=== PATIENT | female | born 1990 | race Caucasian/White ===

== ENCOUNTER 2016-12-18 | Emergency (ER) | payer OTHER ==
--- NOTE | 2016-12-18 11:38 | ED ---
Skin/Abscess/FB HPI - General Chief complaint: Skin/Abscess/Foreign Body Stated complaint: mrsa Time Seen by Provider: 12/18/16 10:57 Source: patient Mode of arrival: ambulatory Limitations: no limitations - History of Present Illness Initial comments: Patient is a 26-year-old female past medical history of MRSA presenting with right axillary abscess 4 day. Patient states she's been trying warm compresses but has been to the point it hurts just due to the warm compresses. Patient has not tried Tylenol Motrin for the pain. Patient states abscess is not draining. Patient states tender to the touch. Patient had a prior vaginal MRSA abscess several years ago. Patient lives with someone that does have MRSA as well. Patient has an ALLERGY to Bactrim. Patient denies fever, chills, chest pain, shortness breath, nausea, vomiting, diarrhea. - Related Data Home Medications Medication Instructions Recorded Confirmed ALPRAZolam [Xanax] 0.5 mg PO DAILY PRN 05/28/16 12/18/16 Ibuprofen [Motrin] 200 mg PO BID PRN 12/18/16 12/18/16 Previous Rx's Medication Instructions Recorded Clindamycin [Cleocin] 450 mg PO TID #90 capsule 12/18/16 Allergies Allergy/AdvReac Type Severity Reaction Status Date / Time tea tree Allergy Severe Rash/Hives Verified 12/18/16 11:02 sulfamethoxazole Allergy Mild Rash/Hives Verified 12/18/16 11:02 [From Bactrim] trimethoprim [From Bactrim] Allergy Mild Rash/Hives Verified 12/18/16 11:02 Review of Systems ROS Statement: Those systems with pertinent positive or pertinent negative responses have been documented in the HPI. Constitutional: No fever and no chills. HENT: No congestion, no rhinorrhea and no sore throat. Eyes: No discharge and no redness. Respiratory: No cough and no shortness of breath. Cardiovascular: No chest pain and no palpitations. Gastrointestinal: No nausea, no vomiting, no abdominal pain and no diarrhea. Genitourinary: No dysuria and no hematuria. Musculoskeletal: No back pain and no arthralgias. Skin: Positive for abscess. No pallor and no rash. Neurological: No dizziness and No headaches. ROS Other: All systems not noted in ROS Statement are negative. Past Medical History Past Medical History: No Reported History History of Any Multi-Drug Resistant Organisms: MRSA Date of last positivie culture/infection: 05/28/16 MDRO Source:: GROIN Past Surgical History: No Surgical Hx Reported Past Psychological History: Anxiety Smoking Status: Never smoker Past Alcohol Use History: None Reported Past Drug Use History: None Reported General Exam - General Exam Comments Initial Comments: Constitutional: Patient appears well-developed and well-nourished. Mild distress. Head: Normocephalic and atraumatic. Eyes: Conjunctivae and EOM are normal. Right eye exhibits no discharge. Left eye exhibits no discharge. No scleral icterus. Neck: Normal range of motion. Neck supple. Cardiovascular: Normal rate and regular rhythm. No murmur heard. Pulmonary/Chest: Effort normal and breath sounds normal. No respiratory distress. No wheezes. Abdominal: Soft. No distension. There is no tenderness. There is no rebound and no guarding. Musculoskeletal: Normal range of motion. No edema or tenderness. Neurological: Patient alert and oriented to person, place, and time. Skin: Right axillary abscess approximately 3 cm with surrounding erythema and tenderness was really tender. No obvious drainage. Skin is warm and dry. Not diaphoretic. Nursing notes and vitals reviewed. Limitations: no limitations Course Vital Signs 12/18/16 10:13 Temperature 98.2 F Pulse Rate 96 Respiratory 16 Rate Blood Pressure 126/78 O2 Sat by Pulse 99 Oximetry - Reevaluation(s) Reevaluation #1: 12/18/16 11:40 Bedside ultrasound confirms a small subcutaneous abscess approximately 1 cm on ultrasound. Patient verbally consented for I&D. Procedures - Incision & Drainage Consent Obtained: verbal consent Time Out Performed?: Yes Indication: Abscess Site: upper extremity Size (cm): 3 Anesthetic Used: lidocaine 1% Amount (mLs): 3 I&D Cleaning Method: Betadine Sterile Field Used?: Yes Scalpel Used: #11 Irrigation Performed?: Yes (Irrigated with 3 rounds of 10 mL normal saline) I&D Drainage Obtained: Pus, Blood Culture Obtained?: No Patient Tolerated Procedure: well Medical Decision Making - Medical Decision Making Patient is a 26-year-old female presenting with 3 cm right axillary abscess which was drained under sterile conditions with I&D. Small amount of purulent drainage taken out. Patient with history of MRSA therefore was treated with clindamycin given her Bactrim ALLERGY. Prior to discharge, patient was resting comfortably in bed. Course of stay improved. Denies pain. Discussed physical exam and diagnostic tests with patient. Questions answered and patient is agreeable to discharge with close follow up with Primary Care Physician. Instructed to return to Emergency Department if symptoms worsen. Disposition Clinical Impression: Axillary abscess Disposition: HOME SELF-CARE Condition: Good Instructions: Abscess Incision and Drainage (ED) Prescriptions: Clindamycin [Cleocin] 450 mg PO TID #90 capsule Referrals: Georges Frazier MD [Primary Care Provider] - 1-2 days
== END 2016-12-18 11:47 | disposition home or self-care (01) ==
CPT/HCPCS: 10060; 99282

== ENCOUNTER 2017-02-25 17:34 | Emergency (ER) | payer OTHER ==
[2017-02-25 17:53] VITALS: PULSE 100; RESP 18
--- NOTE | 2017-02-25 18:31 | ED ---
General Adult HPI - General Chief complaint: Skin/Abscess/Foreign Body Stated complaint: Abcess under arm Time Seen by Provider: 02/25/17 17:57 Source: patient, RN notes reviewed Mode of arrival: ambulatory Limitations: no limitations - History of Present Illness Initial comments: This is a 26-year-old female who presents with an abscess to the right armpit 5 days. Patient states this has happened to her before and she has a history of MRSA. Patient states the area is painful and the patient denies any fever/ chills. Patient denies any chance of being . Patient denies any recent fever, chills, shortness breath, chest pain, abdominal pain, nausea/ vomiting/diarrhea, back pain, numbness, tingling, hematuria, headache, or visual changes, or any other complaints. - Related Data Home Medications Medication Instructions Recorded Confirmed ALPRAZolam [Xanax] 0.5 mg PO DAILY PRN 05/28/16 12/18/16 Ibuprofen [Motrin] 200 mg PO BID PRN 12/18/16 12/18/16 Previous Rx's Medication Instructions Recorded Clindamycin [Cleocin] 450 mg PO TID #90 capsule 12/18/16 Clindamycin [Cleocin] 150 mg PO Q6H 7 Days 02/25/17 traMADol HCL [Ultram] 50 mg PO Q6HR #12 tab 02/25/17 Allergies Allergy/AdvReac Type Severity Reaction Status Date / Time tea tree Allergy Severe Rash/Hives Verified 12/18/16 11:02 sulfamethoxazole Allergy Mild Rash/Hives Verified 12/18/16 11:02 [From Bactrim] trimethoprim [From Bactrim] Allergy Mild Rash/Hives Verified 12/18/16 11:02 Review of Systems ROS Statement: Those systems with pertinent positive or pertinent negative responses have been documented in the HPI. ROS Other: All systems not noted in ROS Statement are negative. Past Medical History Past Medical History: No Reported History History of Any Multi-Drug Resistant Organisms: MRSA Date of last positivie culture/infection: 05/28/16 MDRO Source:: GROIN Past Surgical History: No Surgical Hx Reported Past Psychological History: Anxiety Smoking Status: Never smoker Past Alcohol Use History: None Reported Past Drug Use History: None Reported General Exam - General Exam Comments Initial Comments: General: The patient is awake and alert, in no distress, and does not appear acutely ill. Neck: The neck is supple, there is no tenderness or JVD. Cardiovascular: There is a regular rate and rhythm. No murmur, rub or gallop is appreciated. Respiratory: Lungs are clear to auscultation, respirations are non-labored, breath sounds are equal. No wheezes, stridor, rales, or rhonchi. Musculoskeletal: Normal ROM, no tenderness. Strength 5/5. Sensation intact. Radial pulses equal bilaterally 2+. Neurological: A&O x 3. CN II-XII intact, There are no obvious motor or sensory deficits. Coordination appears grossly intact. Speech is normal. Skin: There is an approximately 1.5 cm raised, erythematous, tender and warm area to the patient's right axillary area consistent with abscess. There is mild surrounding erythema. Skin is warm and dry. Psychiatric: Cooperative, appropriate mood & affect, normal judgment. Limitations: no limitations Course Vital Signs 02/25/17 02/25/17 17:49 19:35 Temperature 97.9 F 98.9 F Pulse Rate 100 100 Respiratory 18 18 Rate Blood Pressure 144/91 134/68 O2 Sat by Pulse 96 98 Oximetry Procedures - Procedures Initial comment: Procedure: Incision and drainage The skin overlying the abscess was prepped with Betadine, and anesthetized with 1% lidocaine without epinephrine. A #11 scalpel was then used to incise the abscess. Some purulent material was then extracted from the lesion. Wound culture obtained. Gauze dressing placed on top, The patient tolerated the procedure well. Medical Decision Making - Medical Decision Making This is a 26-year-old female presents for an abscess to the right armpit. On physical exam patient is afebrile in the EC. There is an approximately 1.5 cm raised, erythematous, tender and warm area to the patient's right axillary area consistent with abscess. There is mild surrounding erythema. Skin is warm and dry. The skin overlying the abscess was prepped with Betadine, and anesthetized with 1% lidocaine without epinephrine. A #11 scalpel was then used to incise the abscess. Some purulent material was then extracted from the lesion. Wound culture obtained. Gauze dressing placed on top, The patient tolerated the procedure well. I discussed that the patient will be put on clindamycin. I discussed warm compresses to the area and wound care. I discussed return parameters. I discussed Tylenol and Motrin for pain and tramadol for any breakthrough pain. Discussed that patient should follow up with PCP in one to 2 days or return to the EC for any worsening symptoms or any further concerns. Patient was receptive to this plan patient was discharged home. Disposition Clinical Impression: Abscess Disposition: HOME SELF-CARE Condition: Good Instructions: Abscess (ED) Additional Instructions: Please finish entire course of antibiotics. Please use Tylenol and Motrin for any pain and tramadol for any breakthrough pain. Please continue to use warm compresses to the area and keep the area clean. May apply Neosporin to the area.Please use medication as discussed. Please follow-up with family doctor in the next 2 days of symptoms have not improved. Please return to emergency room if the symptoms increase or worsen or for any other concerns. Prescriptions: Clindamycin [Cleocin] 150 mg PO Q6H 7 Days traMADol HCL [Ultram] 50 mg PO Q6HR #12 tab Referrals: Georges Frazier MD [Primary Care Provider] - 1-2 days Time of Disposition: 19:19
[2017-02-25 19:36] VITALS: BP 134/68; TEMP 98.9
== END 2017-02-25 19:35 | disposition home or self-care (01) ==
LOC: EC 17:34
DX: L02.411 Cutaneous abscess of right axilla (principal); Z86.14 Personal history of Methicillin resistant Staphylococcus aureus infection; Z88.2 Allergy status to sulfonamides; Z91.048 Other nonmedicinal substance allergy status
CPT/HCPCS: 10060; 87070; 87077; 87186; 87205; 99283

== ENCOUNTER 2017-04-04 18:58 | Emergency (ER) | payer OTHER ==
[2017-04-04 19:19] VITALS: TEMP 98.4
--- NOTE | 2017-04-04 19:45 | ED ---
Skin/Abscess/FB HPI - General Chief complaint: Skin/Abscess/Foreign Body Stated complaint: Vaginal abcess Time Seen by Provider: 04/04/17 19:30 Source: patient, RN notes reviewed Mode of arrival: ambulatory Limitations: no limitations - History of Present Illness Initial comments: 26-year-old male presents to the emergency room chief complaint of abscess to the left groin area. Patient states that his for the last few days. Patient states she has had some purulent-like drainage from the area. Patient does admit to a history of MRSA. Patient states she's had this multiple times. Patient denies any fever or chills but states the redness is getting bigger. Patient states she was concerned due to the continued redness and pain so she thought that she should be evaluated.Patient denies any recent fever, chills, shortness of breath, chest pain, back pain, abdominal pain, nausea vomiting, numbness or tingling, dysuria or hematuria, constipation or diarrhea, headaches or visual changes, or any other current symptoms. - Related Data Home Medications Medication Instructions Recorded Confirmed Ibuprofen [Motrin] 200 - 400 mg PO Q6HR PRN 04/04/17 04/04/17 Sertraline [Zoloft] 50 mg PO HS 04/04/17 04/04/17 Previous Rx's Medication Instructions Recorded Doxycycline [Vibramycin] 100 mg PO Q12HR #56 capsule 04/04/17 Allergies Allergy/AdvReac Type Severity Reaction Status Date / Time tea tree Allergy Severe Rash/Hives Verified 04/04/17 19:33 sulfamethoxazole Allergy Mild Rash/Hives Verified 04/04/17 19:33 [From Bactrim] trimethoprim [From Bactrim] Allergy Mild Rash/Hives Verified 04/04/17 19:33 Review of Systems ROS Statement: Those systems with pertinent positive or pertinent negative responses have been documented in the HPI. ROS Other: All systems not noted in ROS Statement are negative. Past Medical History Past Medical History: No Reported History History of Any Multi-Drug Resistant Organisms: MRSA Date of last positivie culture/infection: 02/25/17 MDRO Source:: ARM Past Surgical History: No Surgical Hx Reported Past Psychological History: Anxiety Smoking Status: Never smoker Past Alcohol Use History: Occasional Past Drug Use History: None Reported General Exam Limitations: no limitations General appearance: alert, in no apparent distress Head exam: Present: atraumatic, normocephalic, normal inspection Eye exam: Present: normal appearance. Absent: scleral icterus, conjunctival injection, periorbital swelling Neck exam: Present: normal inspection Respiratory exam: Absent: respiratory distress Cardiovascular Exam: Present: regular rate, normal rhythm GI/Abdominal exam: Present: soft, normal bowel sounds. Absent: distended, tenderness, guarding, rebound, rigid External exam: Present: erythema (Does appear to have an abscess to the left pubic area.) Neurological exam: Present: alert, oriented X3 Psychiatric exam: Present: normal affect, normal mood Skin exam: Present: warm, dry Course Vital Signs 04/04/17 19:17 Temperature 98.4 F Pulse Rate 87 Respiratory 20 Rate Blood Pressure 133/68 O2 Sat by Pulse 98 Oximetry Procedures - Procedures Initial comment: Procedure: Incision and drainage The skin overlying the abscess was prepped with Betadine, and anesthetized with 1% lidocaine without epinephrine. A #11 scalpel was then used to incise the abscess. Some purulent material was then extracted from the lesion. Gauze dressing placed on top, The patient tolerated the procedure well. Medical Decision Making - Medical Decision Making 26. Presents for an abscess to left groin area. This time patient underwent I& D with some purulent material excised. We did review old wound cultures that do show that the patient is resistant to most antibiotics, tetracycline she is susceptible to. We will place her on doxycycline at this time. We discussed follow-up and return parameters. We discussed all patient's questions. She states she understood and she figured plan. She will be discharged home. Disposition Clinical Impression: Abscess of left groin Disposition: HOME SELF-CARE Condition: Stable Instructions: Abscess (ED), Abscess Incision and Drainage (ED) Additional Instructions: Please use medication as discussed. Please follow up with family doctor if symptoms have not improved over the next two days. Please return to the emergency room if your symptoms increase or worsen or for any other concerns. Prescriptions: Doxycycline [Vibramycin] 100 mg PO Q12HR #56 capsule Referrals: Georges Frazier MD [Primary Care Provider] - 1-2 days Time of Disposition: 19:45
[2017-04-04 20:15] VITALS: BP 124/72; PULSE 91; RESP 16
== END 2017-04-04 20:15 | disposition home or self-care (01) ==
LOC: EC 18:58
DX: L02.214 Cutaneous abscess of groin (principal); F41.9 Anxiety disorder, unspecified; Z79.899 Other long term (current) drug therapy; Z88.2 Allergy status to sulfonamides; Z91.048 Other nonmedicinal substance allergy status
CPT/HCPCS: 10060; 99282

== ENCOUNTER → 2017-06-17 | Outpatient (CLI) | payer OTHER ==
--- NOTE | 2017-06-17 15:03 | XR ---
EXAMINATION TYPE: XR ankle complete LT DATE OF EXAM: 06/17/2017 COMPARISON: NONE HISTORY: Pain FINDINGS: Three views of the ankle demonstrate the ankle mortise to be intact and symmetric. The joint spaces are preserved. The osseous structures are intact. IMPRESSION: 1. No definite acute fracture or dislocation, if symptoms persist follow-up study in 7 to 10 days wou ld be suggested.
== END | disposition home or self-care (01) ==
LOC: RADXRMAIN 14:33
PROVIDERS: ATTEND Internal Medicine
DX: R52 Pain, unspecified (principal)